=== PATIENT | male | born 1950 | race African-American/Black ===

== ENCOUNTER 2020-08-30 13:24 | Inpatient (IN) | payer OTHER, BC ==
[~2020-08-30] VITALS: Ht 172.7 cm; Wt 61.2 kg
--- NOTE | 2020-08-30 13:25 | NUR ---
pt bib paramedics, altered, pt admits to smoking weed, pt has a plastic container cntaining the weed.
[2020-08-30 14:21] LABS: BASOPHILS # (AUTO) 0.1 K/uL (0.0-8.0); BASOPHILS % (AUTO) 1.5 % (0.0-2.0); EOSINOPHILS % (AUTO) 0.9 % (0.0-7.0); HEMATOCRIT 35.3 % (36.7-47.1); HEMOGLOBIN 11.4 g/dL (12.5-16.3); LYMPHOCYTES # (AUTO) 1.8 K/uL (20.0-40.0); LYMPHOCYTES % (AUTO) 39.8 % (20.5-51.5); MEAN CORPUSCULAR HEMOGLOBIN 30.5 uug (23.8-33.4); MEAN CORPUSCULAR HGB CONC 32 g/dL (32.5-36.3); MEAN CORPUSCULAR VOLUME 94.2 fL (73.0-96.2); MONOCYTES # (AUTO) 0.5 K/uL (2.0-10.0); MONOCYTES % (AUTO) 10.8 % (0.0-11.0); NEUTROPHILS # (AUTO) 2.1 K/uL (1.8-8.9); PLATELET COUNT (AUTO) 156 K/uL (152-348); RED BLOOD CELL COUNT(AUTO) 3.74 MIL/uL (4.06-5.63); WHITE BLOOD COUNT (AUTO) 4.5 K/uL (3.6-10.2)
[2020-08-30 14:34] LABS: ALANINE AMINOTRANSFERASE 52 U/L (16-63); ALKALINE PHOSPHATASE 140 U/L (50-136); ASPARTATE AMINOTRANSFERASE 42 U/L (15-37); BILIRUBIN,DIRECT 0.2 mg/dL (0.0-0.2); BILIRUBIN,TOTAL 0.4 mg/dL (0.2-1.0); CARBON DIOXIDE 25 mmol/L (21-32); CHLORIDE 101 mmol/L (98-107); CREATININE 1.5 mg/dL (0.6-1.3); POTASSIUM 4.5 mmol/L (3.5-5.1); TOTAL PROTEIN, SERUM 7.2 g/dL (6.4-8.2); UREA NITROGEN, BLOOD 32 mg/dL (7-18)
[2020-08-30 14:45] LABS: ACETAMINOPHEN < 2.0 ug/mL (10-30); ETHANOL < 3 MG/DL (0-0)
[2020-08-30 14:47] LABS: MAGNESIUM 2.1 mg/dL (1.8-2.4); PHOSPHOROUS 3.7 mg/dL (2.5-4.9)
[2020-08-30 14:49] LABS: THYROID STIMULATING HORMONE 30.712 mIU/mL (0.358-3.740)
[2020-08-30 14:50] LABS: GLUCOSE 397 mg/dL (74-106)
[2020-08-30 14:51] LABS: *BILIRUBIN,URIN NEGATIVE (NEGATIVE); *BLOOD, URINE NEGATIVE (NEGATIVE); *CLARITY,URINE CLEAR (CLEAR); *COLOR,URINE YELLOW (YELLOW); *KETONES,URINE NEGATIVE (NEGATIVE); LEUKOCYTE ESTERASE ,URINE NEGATIVE (NEGATIVE); NITRITE, URINE NEGATIVE (NEGATIVE)
[2020-08-30 14:55] LABS: UGLUCOSE 3+ (NEGATIVE)
[2020-08-30 14:58] LABS: THYROID STIMULATING HORMONE 30.712 mIU/mL (0.358-3.740)
[2020-08-30 15:02] LABS: *AMPHETAMINE, URINE POSITIVE (NEGATIVE); *CANNABINOID, URINE POSITIVE (NEGATIVE); *COCCAINE, URINE NEGATIVE (NEGATIVE); *OPIATE, URINE POSITIVE (NEGATIVE); *PHENCYCLIDINE SCREEN,URINE NEGATIVE (NEGATIVE)
[2020-08-30] MEDS ORDERED: IV NORMAL SALINE 1000 ML BAG IV ONE (15:15)
--- NOTE | 2020-08-30 15:21 | NUR ---
reluctant to answer questions,
[2020-08-30] MEDS ORDERED: DEXTROSE 50% 50 ML DISP.SYRIN IV PRN (16:45)
[2020-08-30] MEDS ORDERED: INSULIN REGULAR, HUMAN 300 UNIT/3 ML VIAL SQ PRN (16:45)
[2020-08-30] MEDS ORDERED: Z GUARD REMEDY PASTE 57 GM TUBE TOP PRN (16:45)
[2020-08-30] MEDS ORDERED: ONDANSETRON 4 MG/2 ML VIAL IV PRN (16:45)
--- NOTE | 2020-08-30 17:04 | NUR ---
PT IN BED, MOVING ALL EXTREMETIES.
[2020-08-30 17:16] LABS: BACTERIA,URINE MANY /HPF (NONE SEEN); RBC,URINE 0-3 /HPF (0-3); SQUAMOUS EPITHELIAL CELL,UR NONE SEEN /HPF (NONE SEEN); WBC,URINE 0-3 /HPF (0-3)
--- NOTE | 2020-08-30 18:00 | NUR ---
Received pt in bed, sleeping, easy to arouse by light pain. Pt came from the ER d/t AMS. Personal belongings checked and with the patient. No S/S of acute distress or pain noted. Pt is VPacing on tele monitor. Pt has a L chest pacemaker. PIV on MARIO 20 is intact with rocephine running at 100cc. Current blood sugar is 320, will cover and implement insulin sliding scale. Safety measures in place. Call light within reach. Will continue with the plan of care.
[2020-08-30 18:06] VITALS: BP 161/66
[2020-08-30] MEDS: CEFTRIAXONE 1 G in IV DEXTROSE 5% 50 ML IV SCH (18:13)
[2020-08-30] MEDS: BLOOD SUGAR DIAGNOSTIC 1 EACH STRIP VI SCH (18:26)
[2020-08-30 20:00] VITALS: BP 142/80
[2020-08-30 22:00] VITALS: BP 142/80
[2020-08-31] VITALS: BP 140/68
[2020-08-31] MEDS: BLOOD SUGAR DIAGNOSTIC 1 EACH STRIP VI SCH ×5 (00:30→21:00)
[2020-08-31] MEDS: ACETAMINOPHEN 325 MG TABLET PO PRN ×3 (00:34→17:35)
[2020-08-31 01:33] VITALS: BP 143/82
[2020-08-31 04:00] VITALS: BP 142/80
--- NOTE | 2020-08-31 05:54 | NUR ---
Pts blood sugar is 56. D50 was given. Will recheck and monitor.
--- NOTE | 2020-08-31 06:31 | NUR ---
Pts blood sugar is 97. V/S stable. Comfort care and needs attended. Safety measures in place. Will endorse to oncoming nurse accordingly.
[2020-08-31 07:05] LABS: BASOPHILS # (AUTO) 0.1 K/uL (0.0-8.0); BASOPHILS % (AUTO) 1.8 % (0.0-2.0); EOSINOPHILS # (AUTO) 0.1 K/uL (0.0-0.7); HEMATOCRIT 37.5 % (36.7-47.1); HEMOGLOBIN 12.3 g/dL (12.5-16.3); LYMPHOCYTES # (AUTO) 1.9 K/uL (20.0-40.0); LYMPHOCYTES % (AUTO) 45.9 % (20.5-51.5); MEAN CORPUSCULAR HEMOGLOBIN 30.8 uug (23.8-33.4); MEAN CORPUSCULAR HGB CONC 33 g/dL (32.5-36.3); MEAN CORPUSCULAR VOLUME 93.6 fL (73.0-96.2); MONOCYTES # (AUTO) 0.5 K/uL (2.0-10.0); MONOCYTES % (AUTO) 11.3 % (0.0-11.0); NEUTROPHILS # (AUTO) 1.6 K/uL (1.8-8.9); PLATELET COUNT (AUTO) 212 K/uL (152-348); RED BLOOD CELL COUNT(AUTO) 4.01 MIL/uL (4.06-5.63); WHITE BLOOD COUNT (AUTO) 4.2 K/uL (3.6-10.2)
[2020-08-31 07:25] LABS: CREATININE 0.9 mg/dL (0.6-1.3); MAGNESIUM 2.1 mg/dL (1.8-2.4); PHOSPHOROUS 3.5 mg/dL (2.5-4.9); POTASSIUM 4.7 mmol/L (3.5-5.1)
--- NOTE | 2020-08-31 08:30 | NUR ---
PATIENT SEEN AND EXAMINED BY BRADLEY LOERA WITH NEW ORDERS AND NOTED SHE ORDERED RAPID COVID TEST BUT STATED THAT PATIENT IS NOT PUI AND SHOULD NOT BE MOVED TO THE INVESTIGATION SECTION
[2020-08-31] MEDS: FUROSEMIDE 20 MG/2 ML VIAL IV SCH (08:45)
[2020-08-31] MEDS: ENOXAPARIN SODIUM 40 MG/0.4 ML DISP.SYRIN SQ SCH (08:57)
--- NOTE | 2020-08-31 09:47 | NUR ---
The patient is having Echosonography. BONNIE Trimble requested to come back later.
--- NOTE | 2020-08-31 10:15 | NUR ---
The patient is agitated and refuses the scan. BONNIE Trimble told the tech to come back after lunch
--- NOTE | 2020-08-31 11:00 | NUR ---
PATIENT STATED THAT HE IS LOOKING FOR HIS PHONE I WAS UNABLE TO LOCATE IT IN HIS ROOM CHECKED HIS BELONGINGS LIST AND SPOKE TO THE NURSE WHO RECEIVED HIS BELONGINGS YESTERDAY AND SHE STATED THAT HE ONLY HAS A [employer] I O PSYCHOLOGIST BUT HAD NO PHONE PATIENT NOTIFIED SO I ENCOURAGED HIM TO CALL HIS CARRIER AND SEE IF HE COULD LOCATE THE PHONE STATED HE HAD IT WHILE HE WAS IN THE [place] SO IT MAY HAVE FALLEN OUT OF HIS POCKET.SO HE STATED THAT ANY WAYS HIS PHONE HAS INSURANCE HE WILL JUST CALL AND IF NOT HAVE IT REPLACED
[2020-08-31 11:37] VITALS: BP 140/75
[2020-08-31] MEDS ORDERED: DEXTROSE 50% 50 ML DISP.SYRIN IV PRN (12:15)
--- NOTE | 2020-08-31 13:58 | NUR ---
ORDER FOR BILATERAL DUPLEX VENOUS WILL BE DONE LATER THIS AFTERNOON PATIENT WAS REFUSING THIS MORNING WHEN THE TECH CAME TO DO IT.
--- NOTE | 2020-08-31 15:00 | NUR ---
NASAL SWAB FOR PCR OBTAINED AND SENT TO THE LAB ORDERED.
[2020-08-31 16:00] VITALS: BP 114/62
[2020-08-31] MEDS: CEFTRIAXONE 1 G in IV DEXTROSE 5% 50 ML IV SCH (17:14)
[2020-08-31] MEDS: INSULIN REGULAR, HUMAN 300 UNIT/3 ML VIAL SQ PRN (17:18)
--- NOTE | 2020-08-31 18:26 | NUR ---
IV ATB GIVEN ORDERED WITH NO ADVERSE OR ALLERGIC REACTIONS AT THIS TIME MADE COMFORTABLE CALL LIGHTS AND PERSONAL BELONGINGS ARE WITHIN EASY REACH WILL CONTINUE TO OBSERVE.
--- NOTE | 2020-08-31 20:01 | NUR ---
The patient agreed to be scan for UE venous Doppler exam. Then he refused the exam and requested to perform the exam tomorrow morning. Nursing supervisor microwave noted. Lower extremity venous exam was done on 08/30/2020. There is another order for the same exam. Nursing supervisor microwave will clarify with the Physician whether it is a repeat.
--- NOTE | 2020-08-31 21:11 | NUR ---
1999 Received pt from albina rogel a/o/x4, paced on monitor, on room air, breathing even/unlabored, pt insisted to sign AMA. DR. Crandall awared. 2099 pt signed AMA, and nurse called CAB for pt. Pt awared that he will pay for the cab due to he signed AMA. Addendum: 08/31/20 at 232 by [facility] RN1 RN 2320 pt still at the hospital room 325 due to cab is not coming. Pt agreed to leave in the morning Addendum: 09/01/20 at 0700 by [facility] RN4 RN 0000 pt changed mind. Pt agree to stay in hospital. 0700 Pt was a/o/x4, pace on monitor, room air. no distress at this time. NO acute event during nightshift. Will endorse to juan f.
[2020-09-01] MEDS: BLOOD SUGAR DIAGNOSTIC 1 EACH STRIP VI SCH ×2 (06:30→11:33)
[2020-09-01] MEDS ORDERED: LEVOTHYROXINE SODIUM 25 MCG TABLET PO SCH (07:00)
[2020-09-01 07:14] LABS: BASOPHILS % (AUTO) 0.8 % (0.0-2.0); EOSINOPHILS % (AUTO) 1.1 % (0.0-7.0); HEMATOCRIT 35.3 % (36.7-47.1); HEMOGLOBIN 11.7 g/dL (12.5-16.3); LYMPHOCYTES # (AUTO) 1.6 K/uL (20.0-40.0); LYMPHOCYTES % (AUTO) 41.4 % (20.5-51.5); MEAN CORPUSCULAR HEMOGLOBIN 31.1 uug (23.8-33.4); MEAN CORPUSCULAR HGB CONC 33 g/dL (32.5-36.3); MEAN CORPUSCULAR VOLUME 93.8 fL (73.0-96.2); MONOCYTES # (AUTO) 0.4 K/uL (2.0-10.0); MONOCYTES % (AUTO) 11.1 % (0.0-11.0); NEUTROPHILS # (AUTO) 1.8 K/uL (1.8-8.9); NEUTROPHILS % (AUTO) 45.6 % (38.5-71.5); PLATELET COUNT (AUTO) 207 K/uL (152-348); RED BLOOD CELL COUNT(AUTO) 3.76 MIL/uL (4.06-5.63); WHITE BLOOD COUNT (AUTO) 3.9 K/uL (3.6-10.2)
[2020-09-01 07:31] LABS: CREATININE 1.2 mg/dL (0.6-1.3); MAGNESIUM 1.7 mg/dL (1.8-2.4); PHOSPHOROUS 3.1 mg/dL (2.5-4.9); POTASSIUM 4.4 mmol/L (3.5-5.1)
[2020-09-01] MEDS: INSULIN REGULAR, HUMAN 300 UNIT/3 ML VIAL SQ PRN ×2 (07:50→11:41)
--- NOTE | 2020-09-01 08:00 | NUR ---
RECEIVED PATIENT AWAKE, ALERT AND ORIENTED X 4. SR ON MONITOR. ON RA, SATURATION WNL. PATIENT ABLE TO AMBULATE WITH ASSISTANCE TO RESTROOM. IV ON RIGHT UPPER ARM 20G, FLUSHED AND PATENT. NO S/S OF DISTRESS NOTED. DENIES SOB. SAFETY PRECAUTIONS IN PLACE. WILL CONTINUE TO MONITOR.
[2020-09-01] MEDS: ENOXAPARIN SODIUM 40 MG/0.4 ML DISP.SYRIN SQ SCH (09:05)
[2020-09-01] MEDS: FUROSEMIDE 20 MG/2 ML VIAL IV SCH (09:05)
[2020-09-01] MEDS: MAGNESIUM SULFATE/D5W 100 ML IV SCH ×2 (10:48→11:34)
[2020-09-01] MEDS ORDERED: INSULIN REGULAR, HUMAN 300 UNIT/3 ML VIAL SQ PRN (12:00)
[2020-09-01] MEDS ORDERED: DEXTROSE 50% 50 ML DISP.SYRIN IV PRN (12:00)
[2020-09-01] MEDS ORDERED: INSULIN REGULAR, HUMAN 300 UNITS/3 ML VIAL SQ PRN (12:00)
[2020-09-01] MEDS ORDERED: HYDROCODONE/APAP 5-325MG TABLET PO PRN (13:30)
--- NOTE | 2020-09-01 16:29 | NUR ---
PATIENT DECIDED TO LEAVE AMA. DISCUSSED BENEFITS OF STAYING IN THE HOSPITAL. PATIENT REMAINS ADAMANT WITH HIS DECISION TO LEAVE AMA. IV REMOVED, NO S/S OF BLEEDING. ID BAND REMOVED. BELONGINGS RETURNED BACK TO PATIENT. NO S/S OF DISTRESS OR SOB. WILL NOTIFY MD. Addendum: 09/01/20 at 1653 by CORTEZ BOWEN RN HATTERAS PAPER SIGNED AND IN CHART
[2020-09-01] MEDS ORDERED: BLOOD SUGAR DIAGNOSTIC 1 EACH STRIP VI SCH (16:30)
== END 2020-09-01 16:54 | disposition left against medical advice (07) | DRG 917 ==
LOC: ER 13:24 → TELE3 17:30
PROVIDERS: ADMIT Registered Nurse; ATTEND Registered Nurse
DX: T40.601A Poisoning by unspecified narcotics, accidental (unintentional), initial encounter (principal); N17.0 Acute kidney failure with tubular necrosis; I50.31 Acute diastolic (congestive) heart failure; G92 Toxic encephalopathy; J18.9 Pneumonia, unspecified organism; I21.A1 Myocardial infarction type 2; D68.69 Other thrombophilia; E87.1 Hypo-osmolality and hyponatremia; E03.9 Hypothyroidism, unspecified; D69.6 Thrombocytopenia, unspecified; D63.8 Anemia in other chronic diseases classified elsewhere; F17.210 Nicotine dependence, cigarettes, uncomplicated; I25.10 Atherosclerotic heart disease of native coronary artery without angina pectoris; I48.91 Unspecified atrial fibrillation; Z95.0 Presence of cardiac pacemaker; M06.9 Rheumatoid arthritis, unspecified; I11.0 Hypertensive heart disease with heart failure; G62.9 Polyneuropathy, unspecified; E11.65 Type 2 diabetes mellitus with hyperglycemia; M16.11 Unilateral primary osteoarthritis, right hip; T43.621A Poisoning by amphetamines, accidental (unintentional), initial encounter; T40.7X1A Poisoning by cannabis (derivatives), accidental (unintentional), initial encounter; T42.4X1A Poisoning by benzodiazepines, accidental (unintentional), initial encounter; Y92.89 Other specified places as the place of occurrence of the external cause; Z59.0 Homelessness; Z91.19 Patient's noncompliance with other medical treatment and regimen; R40.2362 Coma scale, best motor response, obeys commands, at arrival to emergency department; R40.2142 Coma scale, eyes open, spontaneous, at arrival to emergency department; R40.2252 Coma scale, best verbal response, oriented, at arrival to emergency department
CPT/HCPCS: 36415; 70030-TC; 70450; 71045; 83615; 83690; 83735; 84100; 84443; 85025; 85730; 86140; 87086; 93005; 93307; A4663; C1758; G0378; G0480; J0696; J1650; J1815; J1940; J3475; J3490; J7030; J7040; J7060; U0003

== ENCOUNTER 2020-09-27 14:51 | Inpatient (IN) | payer OTHER, MEDICAID ==
[~2020-09-27] VITALS: Ht 165.1 cm; Wt 56.7 kg
[2020-09-27] MEDS ORDERED: LORAZEPAM 2 MG/1 ML VIAL IM ONE (15:15)
[2020-09-27] MEDS ORDERED: IV NORMAL SALINE 1000 ML BAG IV ONE ×3 (15:30→23:45)
[2020-09-27] MEDS ORDERED: PIPERACILLIN SODIUM/TAZOBACTAM 3.375 G in IV DEXTROSE 5% 50 ML IV ONE (15:30)
[2020-09-27] MEDS ORDERED: VANCOMYCIN IV 1,000 MG in IV DEXTROSE 5% 250 ML IV ONE (15:30)
[2020-09-27 16:01] LABS: ABG BASE EXCESS -14.4 mmol/L; ABG HCO3 12.2 mmol/L; ABG PCO2 31.6 mmHg (35.0-45.0); ABG PH 7.206 (7.350-7.450); ABG SITE RIGHT RADIAL; ABG TOTAL HEMOGLOBIN 14.4 G/dL (13.5-18.0); COHb 1.4 % (0.5-1.5); MetHb 0.2 % (0.0-1.5); O2Hb 96.7 % (94.0-97.0); VENT MODE ROOM AIR
[2020-09-27 16:05] LABS: ETHANOL < 3 MG/DL (0-0)
[2020-09-27 16:16] LABS: ALANINE AMINOTRANSFERASE 42 U/L (16-63); ALKALINE PHOSPHATASE 208 U/L (50-136); ASPARTATE AMINOTRANSFERASE 45 U/L (15-37); BILIRUBIN,DIRECT 0.7 mg/dL (0.0-0.2); CARBON DIOXIDE 15 mmol/L (21-32); CHLORIDE 83 mmol/L (98-107); CREATININE 2.7 mg/dL (0.6-1.3); TOTAL PROTEIN, SERUM 8.2 g/dL (6.4-8.2)
[2020-09-27] MEDS ORDERED: KETOROLAC TROMETHAMINE 60 MG INJ IM ONE (16:20)
[2020-09-27 16:27] LABS: THYROID STIMULATING HORMONE 14.024 mIU/mL (0.358-3.740)
[2020-09-27] MEDS ORDERED: levoFLOXacin 750 MG/D5W 150 ML PIGGYBACK IV ONE (16:30)
--- NOTE | 2020-09-27 16:32 | NUR ---
Health Facilities Surveyor assumes care, hands off report received from rn relief charge Jesse. Patient is still for IV line insertion. Patient jsut came back from CT scan. Blood was drawn earlier by lab renewals representative, ABG done, still for urine specimen.
--- NOTE | 2020-09-27 16:35 | NUR ---
Mary graham placed by chargeback specialistBONNIE Casanova MD is aware of difficult IV line insertion for this patient.
[2020-09-27 16:37] LABS: ACETAMINOPHEN < 2.0 ug/mL (10-30)
[2020-09-27 16:38] LABS: GLUCOSE 658 mg/dL (74-106); POTASSIUM 6.9 mmol/L (3.5-5.1); UREA NITROGEN, BLOOD 83 mg/dL (7-18)
[2020-09-27 16:40] LABS: BASOPHILS % (AUTO) 0.3 % (0.0-2.0); EOSINOPHILS % (AUTO) 0.1 % (0.0-7.0); HEMATOCRIT 47.1 % (36.7-47.1); HEMOGLOBIN 14.2 g/dL (12.5-16.3); LYMPHOCYTES # (AUTO) 0.4 K/uL (20.0-40.0); LYMPHOCYTES % (AUTO) 4.2 % (20.5-51.5); MEAN CORPUSCULAR HEMOGLOBIN 30.7 uug (23.8-33.4); MEAN CORPUSCULAR HGB CONC 30 g/dL (32.5-36.3); MEAN CORPUSCULAR VOLUME 101.6 fL (73.0-96.2); MONOCYTES # (AUTO) 0.9 K/uL (2.0-10.0); MONOCYTES % (AUTO) 9.6 % (0.0-11.0); NEUTROPHILS # (AUTO) 7.7 K/uL (1.8-8.9); NEUTROPHILS % (AUTO) 85.8 % (38.5-71.5); PLATELET COUNT (AUTO) 223 K/uL (152-348); RED BLOOD CELL COUNT(AUTO) 4.63 MIL/uL (4.06-5.63); WHITE BLOOD COUNT (AUTO) 8.9 K/uL (3.6-10.2)
[2020-09-27 16:49] LABS: MAGNESIUM 3.3 mg/dL (1.8-2.4); PHOSPHOROUS 7.2 mg/dL (2.5-4.9)
[2020-09-27] MEDS ORDERED: INSULIN REGULAR, HUMAN 100 UNITS in IV NORMAL SALINE 100 ML IV ONE ×2 (17:00)
[2020-09-27] MEDS ORDERED: HALOPERIDOL LACTATE 5 MG/1 ML VIAL ONE (17:11)
[2020-09-27] MEDS ORDERED: LORAZEPAM 2 MG/1 ML VIAL ONE (17:12)
[2020-09-27] MEDS ORDERED: HALOPERIDOL LACTATE 5 MG/1 ML VIAL IM ONE (17:15)
[2020-09-27 17:22] LABS: *OCCULT BLOOD STOOL NEGATIVE (NEGATIVE)
[2020-09-27] MEDS ORDERED: HEPARIN SODIUM,PORCINE 5,000 UNITS/ML VIAL IV ONE (18:00)
[2020-09-27] MEDS ORDERED: HEPARIN/D5W DRIP 500 ML IV ONE (18:00)
[2020-09-27] MEDS ORDERED: ASPIRIN 300 MG RECTAL SUPP RC ONE ×2 (18:00→20:14)
[2020-09-27] MEDS ORDERED: HEPARIN SODIUM,PORCINE 5,000 UNITS/ML VIAL ONE (18:33)
[2020-09-27] MEDS ORDERED: LEVOFLOXACIN IV ONE (18:33)
[2020-09-27] MEDS ORDERED: [UNRECOGNIZED DRUG - OTHER] IV ONE (18:33)
[2020-09-27] MEDS ORDERED: HEPARIN ONE (18:34)
[2020-09-27] MEDS ORDERED: PIPERACILLIN/TAZOBACTAM/D5W 50 ML IV ONE ×2 (18:34→23:49)
[2020-09-27] MEDS ORDERED: [UNRECOGNIZED DRUG - OTHER] ONE (18:34)
[2020-09-27] MEDS ORDERED: INSULIN REGULAR, HUMAN 300 UNIT/3 ML VIAL ONE (18:34)
[2020-09-27] MEDS ORDERED: VANCOMYCIN IV 0 ML ONE (18:34)
--- NOTE | 2020-09-27 18:45 | NUR ---
spoke with Nara,FOOD SAFETY OFFICER and pt to be admitted to CCU, nursing office notified.
--- NOTE | 2020-09-27 18:54 | NUR ---
Bilateral intra-osseous lines were finally inserted by . After multiple attempts to insert IV line to right external jugular vein line and U/S guided peripheral IV line insertions by MD, still for urine collection, still IV heparin & IV insulin drips@this time, still for IV Vancomycin infusion
--- NOTE | 2020-09-27 19:34 | NUR ---
For ICU/CCU admission, endorsed to BONNIE Alford accordingly.
--- NOTE | 2020-09-27 19:40 | NUR ---
Pt, thin & pale, mild confusion, breathing normal in RA, skin cool & dry. Infusing NS, 1000ml via OA on R knee. Comfort & safety ensured.
[2020-09-27] MEDS ORDERED: VANCOMYCIN IV 200 ML ONE (20:14)
[2020-09-27] MEDS ORDERED: levoFLOXacin 750MG/D5W 150 ML IV ONE (20:14)
--- NOTE | 2020-09-27 20:15 | NUR ---
Mid line established on CAITLIN.
[2020-09-27] MEDS ORDERED: INSULIN REGULAR, HUMAN 100 UNIT in IV NORMAL SALINE 99 ML IV PRN ×2 (20:30)
[2020-09-27] MEDS ORDERED: ONDANSETRON 4 MG/2 ML VIAL IV PRN (20:30)
[2020-09-27] MEDS ORDERED: HEPARIN/D5W DRIP 500 ML IV PRN (20:30)
[2020-09-27] MEDS: BLOOD SUGAR DIAGNOSTIC 1 EACH STRIP VI SCH ×3 (21:00→23:00)
[2020-09-27] MEDS ORDERED: HEPARIN/D5W DRIP 500 ML ONE (21:16)
[2020-09-27 21:44] LABS: BAND % (MANUAL) 8 % (0-10); LYMPHOCYTES % (MANUAL) 6 % (20-40); MONOCYTES % (MANUAL) 10 % (2-10); NEUTROPHILS % (MANUAL) 76 % (42-75)
[2020-09-27 22:07] LABS: CREATININE 2.6 mg/dL (0.6-1.3); POTASSIUM 5.9 mmol/L (3.5-5.1)
--- NOTE | 2020-09-27 22:30 | NUR ---
Note undone in [facility] - 09/27/20 at 2248 by [email or web address] MD. Haskins aware of BS 1036, BUN 82. Addendum: 09/27/20 at 2248 by [email or web address] Amendment undone in [facility] - 09/27/20 at 224 by [email or web address] Ed Physician aware of Pt Critical lab BS 1036, BUN 82.
--- NOTE | 2020-09-27 22:30 | NUR ---
ED Physician aware of Pt BS 1036, BUN 82.
[2020-09-27 22:58] LABS: ABG BASE EXCESS -13.2 mmol/L; ABG HCO3 11.6 mmol/L; ABG PCO2 24.6 mmHg (35.0-45.0); ABG SITE RIGHT RADIAL; ABG TOTAL HEMOGLOBIN 12.9 G/dL (13.5-18.0); COHb 0.9 % (0.5-1.5); MetHb 0.3 % (0.0-1.5); O2Hb 96.8 % (94.0-97.0); VENT MODE ROOM AIR
[2020-09-27 23:06] LABS: *BILIRUBIN,URIN NEGATIVE (NEGATIVE); *BLOOD, URINE 2+ (NEGATIVE); *CLARITY,URINE SLIGHTLY CLOUDY (CLEAR); *COLOR,URINE LIGHT YELLOW (YELLOW); *KETONES,URINE 1+ (NEGATIVE); *UROBILINOGEN,URINE 0.2 E.U./dl (NORMAL); LEUKOCYTE ESTERASE ,URINE NEGATIVE (NEGATIVE); NITRITE, URINE NEGATIVE (NEGATIVE); PH,URINE 5.5 (5.0-8.0); UGLUCOSE 3+ (NEGATIVE)
[2020-09-27 23:11] LABS: *AMPHETAMINE, URINE NEGATIVE (NEGATIVE); *CANNABINOID, URINE NEGATIVE (NEGATIVE); *COCCAINE, URINE NEGATIVE (NEGATIVE); *OPIATE, URINE NEGATIVE (NEGATIVE); *PHENCYCLIDINE SCREEN,URINE NEGATIVE (NEGATIVE)
[2020-09-27 23:15] LABS: CREATININE 2.6 mg/dL (0.6-1.3); POTASSIUM 5.1 mmol/L (3.5-5.1)
--- NOTE | 2020-09-27 23:42 | NUR ---
Ed Physician, Aguila, aware of BS 900, Lactate 7.1.
[2020-09-28] VITALS (32 sets, daily range): BP systolic 124–203; BP diastolic 44–99
[2020-09-28] MEDS: PIPERACILLIN SODIUM/TAZOBACTAM 3.375 G in IV DEXTROSE 5% 50 ML IV SCH ×4 (00:09→17:05)
[2020-09-28] MEDS: BLOOD SUGAR DIAGNOSTIC 1 EACH STRIP VI SCH ×16 (00:11→20:01)
[2020-09-28 01:00] LABS: BACTERIA,URINE NONE SEEN /HPF (NONE SEEN); SQUAMOUS EPITHELIAL CELL,UR FEW /HPF (NONE SEEN); WBC,URINE 0-3 /HPF (0-3)
[2020-09-28] MEDS: IV NS 1000 ML 1,000 ML IV PRN ×2 (01:20→11:28)
--- NOTE | 2020-09-28 01:30 | NUR ---
Pt laying quietly, moves arms time to time, altered mental status, aphasic, respond to name, VS stable, BP fluctuates to 170 of diastolic few times during the night. Breathing normal in room air. Jovel is draining clear straw color urine. Comfort & safety maintained in pt.
[2020-09-28 02:41] LABS: CREATININE 2.3 mg/dL (0.6-1.3); PHOSPHOROUS 3.6 mg/dL (2.5-4.9); POTASSIUM 4.3 mmol/L (3.5-5.1)
--- NOTE | 2020-09-28 02:45 | NUR ---
Dr Sheehan notified of patient BS @ 573 and Lactic Acid of 8.7 critical values
[2020-09-28] MEDS ORDERED: IV 0.9% SODIUM CHLORID+ 20 KCL 1,000 ML IV PRN (03:00)
[2020-09-28] MEDS ORDERED: IV NORMAL SALINE 1000 ML BAG IV ONE ×2 (03:00→05:30)
[2020-09-28] MEDS ORDERED: POTASSIUM CHLORIDE 100 ML ONE (03:19)
[2020-09-28 05:07] LABS: BASOPHILS # (AUTO) 0.1 K/uL (0.0-8.0); EOSINOPHILS % (AUTO) 0.1 % (0.0-7.0); HEMATOCRIT 34.6 % (36.7-47.1); HEMOGLOBIN 11.7 g/dL (12.5-16.3); LYMPHOCYTES # (AUTO) 0.6 K/uL (20.0-40.0); LYMPHOCYTES % (AUTO) 6.5 % (20.5-51.5); MEAN CORPUSCULAR HEMOGLOBIN 31.4 uug (23.8-33.4); MEAN CORPUSCULAR HGB CONC 34 g/dL (32.5-36.3); MEAN CORPUSCULAR VOLUME 92.9 fL (73.0-96.2); MONOCYTES # (AUTO) 1.1 K/uL (2.0-10.0); MONOCYTES % (AUTO) 12.3 % (0.0-11.0); NEUTROPHILS # (AUTO) 7.2 K/uL (1.8-8.9); NEUTROPHILS % (AUTO) 80.1 % (38.5-71.5); PLATELET COUNT (AUTO) 164 K/uL (152-348); RED BLOOD CELL COUNT(AUTO) 3.72 MIL/uL (4.06-5.63)
[2020-09-28 05:15] LABS: CREATININE 2.1 mg/dL (0.6-1.3); POTASSIUM 4.3 mmol/L (3.5-5.1)
[2020-09-28 05:26] LABS: PHOSPHOROUS 1.7 mg/dL (2.5-4.9)
--- NOTE | 2020-09-28 05:29 | NUR ---
Dr. Sheehan informed of Lactic 6.3, troponin o.404.
[2020-09-28] MEDS ORDERED: IV D5 1/2 NS 1000 ML 1,000 ML IV ONE (05:30)
[2020-09-28] MEDS ORDERED: PIPERACILLIN SODIUM/TAZO 3.375 GM VIAL ONE (05:43)
--- NOTE | 2020-09-28 06:00 | NUR ---
Called lab for Coagulation Panel Run. Order placed per Heparin drip protocol.
--- NOTE | 2020-09-28 07:46 | NUR ---
DR THADDEUS RIVERA WAS CALLED VERIFY HEPARIN AND INSULIN ORDERS. WAITING FOR HIS CALL BACK. PT IS RESTING IN BED. CONTINUE TO MONITOR THE PT.
--- NOTE | 2020-09-28 08:02 | NUR ---
PT IS IN ROOM #2B. PT IS RESTING IN BED COMFORTABLY. CONTINUE TO MONITOR THE PT.
[2020-09-28] MEDS ORDERED: PANTOPRAZOLE SODIUM 40 MG VIAL IV SCH (09:00)
[2020-09-28] MEDS ORDERED: PANTOPRAZOLE SODIUM 40 MG VIAL ONE (09:05)
[2020-09-28 09:07] LABS: POTASSIUM 4.7 mmol/L (3.5-5.1)
--- NOTE | 2020-09-28 10:05 | NUR ---
REPORT WAS GIVEN TO CCU RN FERNANDO. PT WAS TRANSFERED TO CCU ROOM #4.
--- NOTE | 2020-09-28 10:31 | NUR ---
Patient in from E.R. at this time on Heparin drip running at 1540 unit/hr and insulin running at 2units/hr. IV access Lucas Knee IO with left IO patent and Right IO not flushing. RUE ML patent, and Left forearm patent. Patient restless agitated responsive to painful stimuli only becoming aggressive and extremely agitated. SBP 168/77 with HR 52. Attending called to be notified.
--- NOTE | 2020-09-28 11:23 | NUR ---
A call to Nara Aleman to report pt's admission orders to continue with insulin drip received and to change Heparin drip for ACS with no bolus. Hydralazine 10mg IVP Q6 for sbp above 150's. Also orders for stat ABG's received.
[2020-09-28] MEDS ORDERED: hydrALAZINE HCL 20 MG/1 ML VIAL IV PRN ×2 (11:30→14:45)
[2020-09-28 11:53] LABS: ABG BASE EXCESS -1.7 mmol/L; ABG HCO3 22.5 mmol/L; ABG PCO2 36.6 mmHg (35.0-45.0); ABG PH 7.407 (7.350-7.450); ABG PO2 75.8 mmHg (75.0-100.0); ABG SITE RIGHT RADIAL; ABG TOTAL HEMOGLOBIN 12.5 G/dL (13.5-18.0); COHb 1.2 % (0.5-1.5); MetHb 0.2 % (0.0-1.5); O2Hb 94.9 % (94.0-97.0); VENT MODE Nasal Cannula
[2020-09-28] MEDS ORDERED: LABETALOL HCL 100 MG/20 ML VIAL IV PRN (12:00)
[2020-09-28] MEDS: LABETALOL HCL 100 MG/20 ML VIAL IV PRN (12:11)
--- NOTE | 2020-09-28 13:23 | NUR ---
Attending Milan Bains in the unit report given orders to dcd insulin drip received and implemented.
[2020-09-28] MEDS ORDERED: DEXTROSE 50% 50 ML DISP.SYRIN IV PRN (13:30)
[2020-09-28] MEDS: IV D5/ 0.9% NACL 1,000 ML IV PRN (14:00)
[2020-09-28] MEDS ORDERED: SODIUM PHOSPHATE MM 15 MMOL in IV NORMAL SALINE 250 ML IV ONE (17:30)
[2020-09-28] MEDS: NICARDIPINE-NS IVPB 200 ML IV PRN (17:36)
[2020-09-28] MEDS: INSULIN REGULAR, HUMAN 300 UNIT/3 ML VIAL SQ PRN (20:03)
[2020-09-28] MEDS: FAMOTIDINE. 20 MG/2 ML VIAL IV SCH (21:20)
[2020-09-29] VITALS (46 sets, daily range): BP systolic 102–175; BP diastolic 33–88
[2020-09-29] MEDS: PIPERACILLIN SODIUM/TAZOBACTAM 3.375 G in IV DEXTROSE 5% 50 ML IV SCH ×4 (00:09→17:22)
[2020-09-29] MEDS: BLOOD SUGAR DIAGNOSTIC 1 EACH STRIP VI SCH ×6 (00:17→21:26)
[2020-09-29] MEDS: IV D5/ 0.9% NACL 1,000 ML IV PRN ×2 (02:54→15:51)
[2020-09-29 06:20] LABS: CREATININE 1.4 mg/dL (0.6-1.3); PHOSPHOROUS 1.5 mg/dL (2.5-4.9); POTASSIUM 3.3 mmol/L (3.5-5.1)
[2020-09-29] MEDS: FAMOTIDINE. 20 MG/2 ML VIAL IV SCH ×2 (08:03→21:15)
[2020-09-29] MEDS: INSULIN REGULAR, HUMAN 300 UNIT/3 ML VIAL SQ PRN ×4 (08:18→21:27)
[2020-09-29] MEDS: POTASSIUM CHLORIDE 50 ML IV SCH ×2 (09:32→10:22)
[2020-09-29 11:33] LABS: *BILIRUBIN,URIN NEGATIVE (NEGATIVE); *BLOOD, URINE 3+ (NEGATIVE); *CLARITY,URINE SLIGHTLY CLOUDY (CLEAR); *COLOR,URINE YELLOW (YELLOW); *KETONES,URINE NEGATIVE (NEGATIVE); *UROBILINOGEN,URINE 0.2 E.U./dl (NORMAL); LEUKOCYTE ESTERASE ,URINE NEGATIVE (NEGATIVE); NITRITE, URINE NEGATIVE (NEGATIVE); PH,URINE 5.5 (5.0-8.0); UGLUCOSE 2+ (NEGATIVE)
[2020-09-29 16:01] LABS: BACTERIA,URINE FEW /HPF (NONE SEEN); SQUAMOUS EPITHELIAL CELL,UR FEW /HPF (NONE SEEN)
[2020-09-29 16:03] LABS: URIC ACID CRYSTALS,URINE MODERATE /HPF (NONE SEEN)
--- NOTE | 2020-09-29 18:31 | NUR ---
Cardiology services, Dr. Perla in the unit to see and examine pt. Orders to continue with care plan received.
[2020-09-29] MEDS ORDERED: SODIUM PHOSPHATE MM 15 MMOL in IV NORMAL SALINE 250 ML IV ONE (19:00)
[2020-09-29] MEDS: LABETALOL HCL 100 MG/20 ML VIAL IV PRN (21:18)
[2020-09-30] VITALS (34 sets, daily range): BP systolic 109–188; BP diastolic 27–96
[2020-09-30] MEDS: BLOOD SUGAR DIAGNOSTIC 1 EACH STRIP VI SCH ×6 (00:39→20:54)
[2020-09-30] MEDS: PIPERACILLIN SODIUM/TAZOBACTAM 3.375 G in IV DEXTROSE 5% 50 ML IV SCH ×2 (00:40→06:33)
[2020-09-30] MEDS: LABETALOL HCL 100 MG/20 ML VIAL IV PRN (04:08)
[2020-09-30] MEDS: INSULIN REGULAR, HUMAN 300 UNIT/3 ML VIAL SQ PRN ×5 (04:26→21:10)
[2020-09-30] MEDS: IV D5/ 0.9% NACL 1,000 ML IV PRN ×2 (06:37→18:11)
[2020-09-30 06:51] LABS: CREATININE 1.2 mg/dL (0.6-1.3)
[2020-09-30] MEDS: NICARDIPINE-NS IVPB 200 ML IV PRN (07:36)
[2020-09-30] MEDS: FAMOTIDINE. 20 MG/2 ML VIAL IV SCH ×2 (08:07→20:40)
--- NOTE | 2020-09-30 09:30 | NUR ---
Cardiology services, Dr. Stiles in the unit to examine pt. report given, as stated by once pt. off cardine drip and po meds within therapeutic limits demonstrated by sbp wnl. pt. clear from cardiac specialty.
--- NOTE | 2020-09-30 09:34 | NUR ---
A call from attending Nara Aleman report given on pt's most current condition, orders to place EEG under Dr. Back neurologist.
--- NOTE | 2020-09-30 10:03 | NUR ---
Speech therapist in the unit to evaluate pt. as reported pt. able to drink and eat and puree diet will be order.
[2020-09-30] MEDS ORDERED: hydrALAZINE HCL 20 MG/1 ML VIAL IV PRN (11:30)
[2020-09-30] MEDS ORDERED: AMLODIPINE 10 MG TABLET PO SCH (11:30)
[2020-09-30] MEDS ORDERED: AMLODIPINE 5 MG TABLET PO ONE (11:30)
[2020-09-30] MEDS: LOSARTAN POTASSIUM 50 MG TABLET PO SCH ×2 (11:37→20:41)
[2020-09-30] MEDS: ASPIRIN 81 MG TAB.CHEW PO SCH (11:37)
[2020-09-30] MEDS ORDERED: POTASSIUM PHOSPHATE MM 7.5 MMOL in IV NORMAL SALINE 97.5 ML IV SCH (13:00)
[2020-09-30] MEDS: PIPERACILLIN SODIUM/TAZOBACTAM 3.37 G in IV DEXTROSE 5% 100 ML IV SCH ×2 (13:37→22:49)
--- NOTE | 2020-09-30 16:00 | NUR ---
Patient recieved to care, report from BONNIE Horta. Pt is dozing off, no distress. pt is on room air, Jovel is draining, MARIO IV is intact and functioning.
--- NOTE | 2020-09-30 16:25 | NUR ---
Telephone report given to Ar Almendarez pt. will be going to room 304 as informed ML lucas. upper arms patent and Lucas knee IO in place.
--- NOTE | 2020-09-30 16:38 | NUR ---
Patient curing pickling packer via own bed, pt. AAOx2 vitals stable iv lines patent colbert to gravity. and emptied at this time.
[2020-09-30] MEDS: POTASSIUM CHLORIDE 50 ML IV SCH ×3 (18:11→20:44)
[2020-09-30] MEDS ORDERED: ATORVASTATIN 40 MG TABLET PO SCH (21:00)
[2020-09-30] MEDS: IBUPROFEN 600 MG TABLET PO PRN (21:01)
[2020-09-30] MEDS: MUPIROCIN 2% OINT 22 GM TUBE TP SCH (21:08)
[2020-10-01] VITALS: BP 128/58
--- NOTE | 2020-10-01 03:09 | NUR ---
2200 DOSE OF ZOSYN IVPB ADMINISTERED ORDERED, VIA IV SITE IN LEFT UPPER ARM, PT TOLERATED PROCEDURE WELL,MED. INFUSED WITH NO PROBLEM,UNDERSIGNED UNABLE TO LOG IN EARLY.
[2020-10-01] MEDS: IBUPROFEN 600 MG TABLET PO PRN ×2 (03:34→20:38)
[2020-10-01] MEDS: BLOOD SUGAR DIAGNOSTIC 1 EACH STRIP VI SCH ×6 (04:00→21:34)
[2020-10-01 04:03] VITALS: BP 139/45
[2020-10-01] MEDS: PIPERACILLIN SODIUM/TAZOBACTAM 3.37 G in IV DEXTROSE 5% 100 ML IV SCH ×3 (06:22→22:08)
[2020-10-01] MEDS: FAMOTIDINE. 20 MG/2 ML VIAL IV SCH (08:12)
[2020-10-01] MEDS: AMLODIPINE 10 MG TABLET PO SCH (08:18)
[2020-10-01] MEDS: LOSARTAN POTASSIUM 50 MG TABLET PO SCH ×2 (08:19→21:21)
[2020-10-01] MEDS: ASPIRIN 81 MG TAB.CHEW PO SCH (08:19)
[2020-10-01] MEDS: MUPIROCIN 2% OINT 22 GM TUBE TP SCH ×2 (08:19→21:21)
[2020-10-01] MEDS: INSULIN REGULAR, HUMAN 300 UNIT/3 ML VIAL SQ PRN ×2 (08:23→11:57)
[2020-10-01 12:00] VITALS: BP 144/54
--- NOTE | 2020-10-01 12:00 | NUR ---
BS above 500 notified kevyn. gave 20 units as ordered. Stopped IVF containing dextrose.
--- NOTE | 2020-10-01 13:00 | NUR ---
Bilateral intraosseous access taken off as ordered.
[2020-10-01] MEDS ORDERED: INSULIN REGULAR, HUMAN 300 UNITS/3 ML VIAL SQ PRN (13:15)
[2020-10-01] MEDS ORDERED: DEXTROSE 50% 50 ML DISP.SYRIN IV PRN (13:15)
[2020-10-01 13:17] LABS: BASOPHILS % (AUTO) 0.1 % (0.0-2.0); EOSINOPHILS % (AUTO) 0.1 % (0.0-7.0); HEMATOCRIT 38.8 % (36.7-47.1); HEMOGLOBIN 12.4 g/dL (12.5-16.3); LYMPHOCYTES # (AUTO) 0.6 K/uL (20.0-40.0); LYMPHOCYTES % (AUTO) 10.9 % (20.5-51.5); MEAN CORPUSCULAR HEMOGLOBIN 30.2 uug (23.8-33.4); MEAN CORPUSCULAR HGB CONC 32 g/dL (32.5-36.3); MEAN CORPUSCULAR VOLUME 94.5 fL (73.0-96.2); MONOCYTES # (AUTO) 0.8 K/uL (2.0-10.0); MONOCYTES % (AUTO) 13.6 % (0.0-11.0); NEUTROPHILS # (AUTO) 4.5 K/uL (1.8-8.9); NEUTROPHILS % (AUTO) 75.3 % (38.5-71.5); PLATELET COUNT (AUTO) 126 K/uL (152-348); RED BLOOD CELL COUNT(AUTO) 4.11 MIL/uL (4.06-5.63)
[2020-10-01 13:20] LABS: BILIRUBIN,TOTAL 0.6 mg/dL (0.2-1.0); CREATININE 1.4 mg/dL (0.6-1.3); POTASSIUM 3.5 mmol/L (3.5-5.1); TOTAL PROTEIN, SERUM 6.8 g/dL (6.4-8.2)
[2020-10-01 16:00] VITALS: BP 147/70
[2020-10-01] MEDS ORDERED: POTASSIUM CHLORIDE 20 MEQ POWDER PACKET PO ONE (17:00)
[2020-10-01] MEDS: FAMOTIDINE 20 MG TABLET PO SCH (17:03)
--- NOTE | 2020-10-01 18:00 | NUR ---
Pt is in no acute distress. Call light is within reach.
[2020-10-01 20:09] VITALS: BP 151/75
--- NOTE | 2020-10-01 23:34 | NUR ---
Patient ripped out MARIO Midline - Refuses treatment - says that he is fine and only wants a sandwich - Educated to his diagnosis and necessity of treatment. Still only wants food. Will monitor and assess.
--- NOTE | 2020-10-02 00:12 | NUR ---
Patient refusing all IV medications. Only wants a "sandwich and chicken wings". Last blood sugar was 419, MD Rendon made aware, no changes to plan of care and no new orders. Will monitor and assess.
[2020-10-02] MEDS ORDERED: OLANZAPINE 10 MG VIAL IM ONE (01:30)
--- NOTE | 2020-10-02 01:45 | NUR ---
Patient continuously screams from his bed. Very confused. Not oriented to where he is. Previously ripped out MARIO Mid-Line and refuses all IV medications. Received IM Zyprexa order from Haylie Bruce DIRECTOR GLOBAL MARKET RESEARCH. Bed alarm on, call light within reach. Safety measures in place. Will administer and monitor.
[2020-10-02] MEDS: IBUPROFEN 600 MG TABLET PO PRN (03:34)
--- NOTE | 2020-10-02 05:00 | NUR ---
Was able to convince patient to allow us to continue IV Zosyn.
[2020-10-02] MEDS: PIPERACILLIN SODIUM/TAZOBACTAM 3.37 G in IV DEXTROSE 5% 100 ML IV SCH ×3 (05:15→22:13)
[2020-10-02] MEDS: BLOOD SUGAR DIAGNOSTIC 1 EACH STRIP VI SCH ×4 (06:42→21:00)
--- NOTE | 2020-10-02 07:04 | NUR ---
Patient handed off to AM nurse. Stable condition. Will endorse all necessary information.
--- NOTE | 2020-10-02 07:30 | NUR ---
Received patient resting in bed, he is dozing off intermittently but is arousable through touch. Safety precautions are in place. Will continue to monitor.
[2020-10-02] MEDS: FAMOTIDINE 20 MG TABLET PO SCH ×2 (08:22→17:39)
[2020-10-02] MEDS: ASPIRIN 81 MG TAB.CHEW PO SCH (08:22)
[2020-10-02] MEDS: INSULIN REGULAR, HUMAN 300 UNIT/3 ML VIAL SQ PRN ×2 (08:22→12:33)
[2020-10-02] MEDS: AMLODIPINE 10 MG TABLET PO SCH (08:29)
[2020-10-02] MEDS: LOSARTAN POTASSIUM 50 MG TABLET PO SCH ×2 (08:30→22:13)
[2020-10-02] MEDS: MUPIROCIN 2% OINT 22 GM TUBE TP SCH ×2 (08:30→22:13)
[2020-10-02 11:39] VITALS: BP_SYST 139; BP_DIAS 59; BP_DIAS 72
[2020-10-02] MEDS ORDERED: DEXTROSE 50% 50 ML DISP.SYRIN IV PRN (13:00)
[2020-10-02] MEDS ORDERED: INSULIN REGULAR, HUMAN 300 UNITS/3 ML VIAL SQ PRN (13:00)
[2020-10-02 14:58] LABS: CREATININE 1.1 mg/dL (0.6-1.3); MAGNESIUM 1.9 mg/dL (1.8-2.4); PHOSPHOROUS 1.3 mg/dL (2.5-4.9); POTASSIUM 3.2 mmol/L (3.5-5.1)
[2020-10-02 15:06] VITALS: BP 140/74
[2020-10-02 15:15] LABS: BASOPHILS % (AUTO) 0.4 % (0.0-2.0); EOSINOPHILS % (AUTO) 0.5 % (0.0-7.0); HEMATOCRIT 38.2 % (36.7-47.1); HEMOGLOBIN 12.4 g/dL (12.5-16.3); LYMPHOCYTES # (AUTO) 1.1 K/uL (20.0-40.0); LYMPHOCYTES % (AUTO) 17.3 % (20.5-51.5); MEAN CORPUSCULAR HEMOGLOBIN 30.2 uug (23.8-33.4); MEAN CORPUSCULAR HGB CONC 33 g/dL (32.5-36.3); MEAN CORPUSCULAR VOLUME 92.9 fL (73.0-96.2); MONOCYTES % (AUTO) 15.9 % (0.0-11.0); NEUTROPHILS # (AUTO) 4.2 K/uL (1.8-8.9); NEUTROPHILS % (AUTO) 65.9 % (38.5-71.5); PLATELET COUNT (AUTO) 150 K/uL (152-348); RED BLOOD CELL COUNT(AUTO) 4.11 MIL/uL (4.06-5.63); WHITE BLOOD COUNT (AUTO) 6.4 K/uL (3.6-10.2)
[2020-10-02 17:22] LABS: BAND % (MANUAL) 2 % (0-10); EOSINOPHILS % (MANUAL) 1 % (0-8); LYMPHOCYTES % (MANUAL) 20 % (20-40); MONOCYTES % (MANUAL) 14 % (2-10); NEUTROPHILS % (MANUAL) 63 % (42-75)
--- NOTE | 2020-10-02 19:37 | NUR ---
Patient resting in bed. He has slept most of the day, when asked how he is feeling he says "good". Safety precautions are in place with call light and belongings within reach. Will endorse to the oncoming nurse.
[2020-10-02 20:21] VITALS: BP 148/75
[2020-10-03 04:24] VITALS: BP 131/63
[2020-10-03] MEDS: PIPERACILLIN SODIUM/TAZOBACTAM 3.37 G in IV DEXTROSE 5% 100 ML IV SCH (06:32)
[2020-10-03] MEDS: BLOOD SUGAR DIAGNOSTIC 1 EACH STRIP VI SCH ×2 (07:36→11:02)
[2020-10-03] MEDS: INSULIN REGULAR, HUMAN 300 UNIT/3 ML VIAL SQ PRN ×2 (07:50→11:03)
[2020-10-03] MEDS: ASPIRIN 81 MG TAB.CHEW PO SCH (08:03)
[2020-10-03] MEDS: FAMOTIDINE 20 MG TABLET PO SCH (08:03)
[2020-10-03] MEDS: LOSARTAN POTASSIUM 50 MG TABLET PO SCH (08:03)
[2020-10-03] MEDS: AMLODIPINE 10 MG TABLET PO SCH (08:04)
[2020-10-03] MEDS: MUPIROCIN 2% OINT 22 GM TUBE TP SCH (08:04)
[2020-10-03 11:48] VITALS: BP 164/56
[2020-10-03] MEDS ORDERED: FAMO20TA8 PO (13:33)
[2020-10-03] MEDS ORDERED: LEVO500T90 PO (13:33)
[2020-10-03] MEDS ORDERED: AMLO10TA59 PO (13:33)
[2020-10-03] MEDS ORDERED: LOSA50TA3 PO (13:33)
[2020-10-03] MEDS ORDERED: ASPI81TA31 PO (13:33)
[2020-10-03] MEDS ORDERED: INSU100V28 SQ ×2 (13:38)
[2020-10-03 14:52] LABS: BASOPHILS % (AUTO) 0.1 % (0.0-2.0); EOSINOPHILS % (AUTO) 0.1 % (0.0-7.0); HEMATOCRIT 37.2 % (36.7-47.1); HEMOGLOBIN 12.3 g/dL (12.5-16.3); LYMPHOCYTES % (AUTO) 10.6 % (20.5-51.5); MEAN CORPUSCULAR HEMOGLOBIN 30.6 uug (23.8-33.4); MEAN CORPUSCULAR HGB CONC 33 g/dL (32.5-36.3); MEAN CORPUSCULAR VOLUME 92.4 fL (73.0-96.2); MONOCYTES # (AUTO) 1.3 K/uL (2.0-10.0); MONOCYTES % (AUTO) 12.9 % (0.0-11.0); NEUTROPHILS # (AUTO) 7.4 K/uL (1.8-8.9); NEUTROPHILS % (AUTO) 76.3 % (38.5-71.5); PLATELET COUNT (AUTO) 167 K/uL (152-348); RED BLOOD CELL COUNT(AUTO) 4.02 MIL/uL (4.06-5.63); WHITE BLOOD COUNT (AUTO) 9.7 K/uL (3.6-10.2)
[2020-10-03 15:03] LABS: MAGNESIUM 1.8 mg/dL (1.8-2.4); PHOSPHOROUS 1.3 mg/dL (2.5-4.9); POTASSIUM 3.5 mmol/L (3.5-5.1)
[2020-10-03 15:55] VITALS: BP 119/58
--- NOTE | 2020-10-03 16:17 | NUR ---
dc orders received noted and carried out,dc heplock per md orders,dc instruction and rn report given to the assisted pt left the facility via ambulances in stable condition
== END 2020-10-03 16:19 | DRG 871 ==
LOC: ER 14:51 → CCU 09-28 09:15 → TELE3 09-30 16:47 → MEDSURG3 10-01 18:30
PROVIDERS: ADMIT Nurse Practitioner Acute Care; ATTEND Nurse Practitioner Acute Care
PROC: 05H533Z Insertion of Infusion Device into Right Subclavian Vein, Percutaneous Approach (ICD-10-PCS; principal; 2020-09-27)
PROC: B546ZZA Ultrasonography of Right Subclavian Vein, Guidance (ICD-10-PCS; 2020-09-27)
PROC: 05HY33Z Insertion of Infusion Device into Upper Vein, Percutaneous Approach (ICD-10-PCS; 2020-09-28)
DX: A41.9 Sepsis, unspecified organism (principal); E11.10 Type 2 diabetes mellitus with ketoacidosis without coma; J18.9 Pneumonia, unspecified organism; I21.A1 Myocardial infarction type 2; G92 Toxic encephalopathy; N17.0 Acute kidney failure with tubular necrosis; I50.31 Acute diastolic (congestive) heart failure; I16.1 Hypertensive emergency; D68.69 Other thrombophilia; E87.1 Hypo-osmolality and hyponatremia; I13.0 Hypertensive heart and chronic kidney disease with heart failure and stage 1 through stage 4 chronic kidney disease, or unspecified chronic kidney disease; E87.2 Acidosis; D63.8 Anemia in other chronic diseases classified elsewhere; E03.9 Hypothyroidism, unspecified; D69.6 Thrombocytopenia, unspecified; E11.22 Type 2 diabetes mellitus with diabetic chronic kidney disease; E86.0 Dehydration; I25.10 Atherosclerotic heart disease of native coronary artery without angina pectoris; I48.91 Unspecified atrial fibrillation; Z95.0 Presence of cardiac pacemaker; Z91.19 Patient's noncompliance with other medical treatment and regimen; R04.0 Epistaxis; E11.40 Type 2 diabetes mellitus with diabetic neuropathy, unspecified; E87.5 Hyperkalemia; M06.9 Rheumatoid arthritis, unspecified; M16.11 Unilateral primary osteoarthritis, right hip; F19.129 Other psychoactive substance abuse with intoxication, unspecified; N18.9 Chronic kidney disease, unspecified; Z79.4 Long term (current) use of insulin
CPT/HCPCS: 36415; 36600; 70030-TC; 70450; 70486; 71045; 72125; 83605; 83690; 83735; 84100; 84156; 84300; 84443; 85025; 85610; 85651; 85730; 86140; 87040; 93005; 95819; A4663; C9113; G0378; G0480; J0360; J1630; J1644; J1815; J1885; J1956; J2060; J2358; J2543; J3370; J3480; J3490; J7030; J7040; J7042; J7050; J7060